=== PATIENT | female | born 1955 | race African-American/Black ===

== ENCOUNTER 2016-08-01 17:23 | Emergency (ER) | payer OTHER ==
[~2016-08-01] VITALS: Ht 165.1 cm; Wt 77.3 kg
[~2016-08-01 17:23] MED LIST: ALBUTEROL1.25 MG/3 IH; AMBIEN 10MG10 MG PO; ASPIR-LOW81 MG PO; ASPIR-LOX325 MG PO; AUGMENTIN XR 101 TER PO; CALAN SR240 MG PO; CARDI-OMEGA1000 MG PO; CEFTIN500 MG PO; CELEXA 20MG20 MG/TAB PO; CHOLESTEROL MED; CIPRO 250MG TA250 MG PO; CIPRO 500MG TA500 MG PO; COENZYME Q-1010 MG PO; FLAGYL500 MG PO; HCTZ PO; LEADER GARLIC400 MG PO; LEVAQUIN 5500 MG/TA1 PO; LIPITOR 10MG10 MG PO; LIPITOR20 MG PO; MASON NATURAL600 MG PO; MYRBETR25MG PO; NORCO 325 MG-51 TAB PO; PHENERGAN 25 TA25 MG PO; PRENATAL VITAMI1 TA5 PO; PRILOSEC 20MG20 MG PO; PRILOSEC10 MG PO; PRINIVIL10 MG PO; PROBIOTICA100 Milli1 PO; PYRIDIUM 100MG100 MG PO; ST. JOSEPH81 M2 PO; SYNTHROID0.075 MG/T PO; THYROXIN PO; TOPROL XL50 MG PO; VERAPAMIL; ZETIA10 MG PO; ZOCOR 20MG20 MG PO; ZOFRAN 4MG T4 MG/TAB PO; [UNRECOGNIZED DRUG - REMARK]
[2016-08-01 17:28] VITALS: TEMP 98.6
[2016-08-01] MEDS ORDERED: PRILOSEC 20MG20 MG PO (19:09)
[2016-08-01] MEDS ORDERED: VERELAN240 MG PO (19:09)
[2016-08-01] MEDS ORDERED: LIPITOR20 MG PO (19:09)
[2016-08-01] MEDS ORDERED: WELLBUTRIN SR100 M1 PO (19:09)
[2016-08-01] MEDS ORDERED: LINZESS145CAP PO (19:10)
[2016-08-01] MEDS ORDERED: MICROZIDE12.5 MG PO (19:10)
[2016-08-01] MEDS ORDERED: PRINIVIL10 MG PO (19:11)
[2016-08-01] MEDS ORDERED: SYNTHROID0.075 MG/T PO (19:11)
[2016-08-01 20:15] LABS: PH 5 (5-8); SQUAMOUS EPITHELIAL 0-2 /hpf; URINE APPEARANCE Clear; URINE BACTERIA None Seen /hpf; URINE BILIRUBIN Negative (NEGATIVE); URINE BLOOD Negative (NEGATIVE); URINE COLOR Yellow; URINE GLUCOSE Negative (NEGATIVE); URINE KETONE Negative (NEGATIVE); URINE RBC 0-2 /hpf; URINE UROBILINOGEN Negative (NEGATIVE)
[2016-08-01 20:24] VITALS: BP 180/101; PULSE 74
== END 2016-08-01 20:26 | disposition home or self-care (01) ==
LOC: COL.ER 17:23
PROVIDERS: Physician Assistant
DX: Z03.89 Encounter for observation for other suspected diseases and conditions ruled out (principal); R10.32 Left lower quadrant pain; R10.31 Right lower quadrant pain

== ENCOUNTER → 2016-08-23 | Outpatient (CLI) | payer SELFPAY ==
[~2016-08-23] MED LIST changes: +ASPIRIN 81M81 MG/TA2 PO; +LINZESS145CAP PO; +MACROBID 1100 MG/CAP PO; +MICROZIDE12.5 MG PO; +OMEGA-3 1000 MG1 CAP PO; +VALIUM 2MG T2 MG/TAB PO; +VERELAN240 MG PO; +WELLBUTRIN SR100 M1 PO
== END ==
LOC: COL.VAS 09:35
DX: I35.1 Nonrheumatic aortic (valve) insufficiency (principal); R94.39 Abnormal result of other cardiovascular function study; R01.1 Cardiac murmur, unspecified

== ENCOUNTER 2017-01-06 22:17 | Emergency (ER) | payer SELFPAY ==
[~2017-01-06] VITALS: Ht 165.1 cm; Wt 90.9 kg
[~2017-01-06 22:17] MED LIST changes: -ASPIRIN 81M81 MG/TA2 PO; -MACROBID 1100 MG/CAP PO; -OMEGA-3 1000 MG1 CAP PO; -VALIUM 2MG T2 MG/TAB PO
[2017-01-06 22:25] VITALS: BP 187/126; TEMP 97.9
[2017-01-06] MEDS ORDERED: OMEGA-3 1000 MG1 CAP PO (22:46)
[2017-01-06] MEDS ORDERED: ASPIRIN 81M81 MG/TA2 PO (22:46)
[2017-01-06 23:03] LABS: BASO % 0.4 % (0.0-2.0); EOS # 0.1 (0.0-0.7); EOS % 2.1 % (0-4.0); GRAN % 41.9 % (42.2-75.2); HEMOGLOBIN 12.6 g/dl (12.5-16.0); LYMPH # 2.3 (1.2-3.4); LYMPH % 48.3 % (20.0-51.0); MEAN CELL VOLUME 85 fl (80.0-100.0); MEAN CORPUSCULAR HEMOGLOBIN 28 pg (27.0-31.0); MEAN CORPUSCULAR HGB CONC 32 g/dl (33.0-37.0); MEAN PLATELET VOLUME 10.1 fl (7.4-10.4); MONO # 0.3 (0.1-0.6); MONO % 7.1 % (1.7-9.3); PLATELET COUNT 218 K/mm3 (130-400); RED BLOOD COUNT 4.58 M/mm3 (4.10-5.30); REDCELL DISTRIBUTION WIDTH-CV 14.2 % (11.5-14.5); WHITE BLOOD COUNT 4.8 K/mm3 (4.8-10.8)
[2017-01-06 23:20] LABS: ADJUSTED CALCIUM 10.4 mg/dL (8.4-10.2); ALBUMIN 4.1 gm/dL (3.5-5.0); BILIRUBIN,TOTAL 0.4 mg/dL (0.0-1.0); CALCIUM 10.5 mg/dL (8.4-10.2); CREATININE, serum 0.72 mg/dL (0.52-1.25); POTASSIUM 3.7 mmol/L (3.4-5.0); TOTAL PROTEIN 7.3 gm/dL (6.4-8.2)
[2017-01-06 23:32] LABS: PH 5 (5-8); URINE APPEARANCE Hazy; URINE BACTERIA Rare /hpf; URINE BILIRUBIN Negative (NEGATIVE); URINE BLOOD Negative (NEGATIVE); URINE COLOR Yellow; URINE GLUCOSE Negative (NEGATIVE); URINE KETONE Negative (NEGATIVE); URINE RBC 0-2 /hpf; URINE UROBILINOGEN Negative (NEGATIVE)
[2017-01-06] MEDS ORDERED: MACROBID 1100 MG/CAP PO (23:38)
[2017-01-07 00:01] VITALS: PULSE 78
== END 2017-01-07 00:03 | disposition home or self-care (01) ==
LOC: COL.ER 22:17
PROVIDERS: Emergency Medicine
DX: N30.00 Acute cystitis without hematuria (principal); I10 Essential (primary) hypertension; M19.90 Unspecified osteoarthritis, unspecified site; E03.9 Hypothyroidism, unspecified; E78.5 Hyperlipidemia, unspecified; F17.210 Nicotine dependence, cigarettes, uncomplicated; Z79.82 Long term (current) use of aspirin

== ENCOUNTER 2017-01-11 20:03 | Emergency (ER) | payer SELFPAY ==
[~2017-01-11] VITALS: Ht 165.1 cm; Wt 81.8 kg
[~2017-01-11 20:03] MED LIST changes: +ASPIRIN 81M81 MG/TA2 PO; +MACROBID 1100 MG/CAP PO; +OMEGA-3 1000 MG1 CAP PO
[2017-01-11 20:05] VITALS: TEMP 98
[2017-01-11 20:32] LABS: BASO % 0.4 % (0.0-2.0); EOS % 0.6 % (0-4.0); GRAN # 2.5 (1.4-6.5); GRAN % 49.6 % (42.2-75.2); HEMATOCRIT 40.6 % (37.0-47.0); HEMOGLOBIN 12.7 g/dl (12.5-16.0); LYMPH # 2.2 (1.2-3.4); MEAN CELL VOLUME 84 fl (80.0-100.0); MEAN CORPUSCULAR HEMOGLOBIN 26 pg (27.0-31.0); MEAN CORPUSCULAR HGB CONC 31 g/dl (33.0-37.0); MEAN PLATELET VOLUME 9.7 fl (7.4-10.4); MONO # 0.4 (0.1-0.6); MONO % 7.2 % (1.7-9.3); PLATELET COUNT 207 K/mm3 (130-400); RED BLOOD COUNT 4.81 M/mm3 (4.10-5.30); REDCELL DISTRIBUTION WIDTH-CV 14.3 % (11.5-14.5); WHITE BLOOD COUNT 5.1 K/mm3 (4.8-10.8)
[2017-01-11 20:44] LABS: ANION GAP 11 mmol/L (7-16); BLOOD UREA NITROGEN 14 mg/dL (7-17); CALCIUM 10.2 mg/dL (8.4-10.2); CARBON DIOXIDE 22 mmol/L (22-30); CHLORIDE 107 mmol/L (98-107); CREATININE, serum 0.59 mg/dL (0.52-1.25); GLUCOSE 88 mg/dL (74-106); POTASSIUM 3.5 mmol/L (3.4-5.0); SODIUM 140 mmol/L (137-145)
[2017-01-11 20:59] LABS: TROPONIN-I < 0.012 ng/mL (0.000-0.034)
[2017-01-11 21:12] VITALS: BP 175/85
[2017-01-11] MEDS ORDERED: PRILOSEC 20MG20 MG PO (21:24)
[2017-01-11] MEDS ORDERED: VALIUM 2MG T2 MG/TAB PO (21:52)
[2017-01-11 22:15] VITALS: PULSE 64
== END 2017-01-11 22:15 | disposition home or self-care (01) ==
LOC: COL.ER 20:03
PROVIDERS: Emergency Medicine
DX: R42 Dizziness and giddiness (principal); I10 Essential (primary) hypertension; R00.2 Palpitations; F17.200 Nicotine dependence, unspecified, uncomplicated
CPT/HCPCS: J7030

== ENCOUNTER → 2017-01-26 | Outpatient (CLI) | payer BC ==
[~2017-01-26] MED LIST changes: +VALIUM 2MG T2 MG/TAB PO
== END ==
LOC: COL.CARD 10:02
DX: I49.9 Cardiac arrhythmia, unspecified (principal)

== ENCOUNTER → 2017-04-23 | Outpatient (CLI) | payer BC | LOC: MC.RAD 11:36 | DX: Z12.31 Encounter for screening mammogram for malignant neoplasm of breast (principal) ==

== ENCOUNTER 2017-06-03 04:50 | Emergency (ER) | payer BC ==
[~2017-06-03] VITALS: Ht 165.1 cm; Wt 95.5 kg
[2017-06-03 04:54] VITALS: TEMP 98.1
[2017-06-03 05:29] LABS: COLLECTION METHOD CLEAN CATCH
[2017-06-03 05:36] LABS: MUCOUS Present /lpf; PH 6 (5-8); SQUAMOUS EPITHELIAL 0-2 /hpf; URINE APPEARANCE Clear; URINE BACTERIA None Seen /hpf; URINE BILIRUBIN Negative (NEGATIVE); URINE BLOOD Negative (NEGATIVE); URINE COLOR Yellow; URINE GLUCOSE 1+ (NEGATIVE); URINE KETONE Negative (NEGATIVE); URINE LEUKOCYTE ESTERASE Negative (NEGATIVE); URINE PROTEIN(semi-quant) Negative (NEGATIVE); URINE RBC None Seen /hpf; URINE UROBILINOGEN >=4.0 mg/dL (NEGATIVE)
[2017-06-03 06:14] LABS: BASO % 0.4 % (0.0-2.0); EOS # 0.1 (0.0-0.7); EOS % 1.5 % (0-4.0); GRAN # 2.6 (1.4-6.5); GRAN % 50.7 % (42.2-75.2); HEMATOCRIT 42.1 % (37.0-47.0); HEMOGLOBIN 13.3 g/dl (12.5-16.0); LYMPH % 37.9 % (20.0-51.0); MEAN CELL VOLUME 85 fl (80.0-100.0); MEAN CORPUSCULAR HEMOGLOBIN 27 pg (27.0-31.0); MEAN CORPUSCULAR HGB CONC 32 g/dl (33.0-37.0); MEAN PLATELET VOLUME 9.7 fl (7.4-10.4); MONO # 0.5 (0.1-0.6); MONO % 9.3 % (1.7-9.3); PLATELET COUNT 221 K/mm3 (130-400); RED BLOOD COUNT 4.97 M/mm3 (4.10-5.30); WHITE BLOOD COUNT 5.2 K/mm3 (4.8-10.8)
[2017-06-03 06:27] LABS: ADJUSTED CALCIUM 9.3 mg/dL (8.4-10.2); ALBUMIN 4.5 gm/dL (3.5-5.0); BILIRUBIN,TOTAL 0.7 mg/dL (0.0-1.0); C-REACTIVE PROTEIN 4.1 mg/dL (0.0-0.9); CALCIUM 9.7 mg/dL (8.4-10.2); CREATININE, serum 0.66 mg/dL (0.52-1.25); POTASSIUM 4.1 mmol/L (3.4-5.0); TOTAL PROTEIN 7.7 gm/dL (6.4-8.2)
[2017-06-03] MEDS ORDERED: NORCO 325 MG-51 TAB PO (07:31)
[2017-06-03] MEDS ORDERED: FLAGYL500 MG PO (07:31)
[2017-06-03] MEDS ORDERED: CIPRO 500MG TA500 MG PO (07:31)
[2017-06-03 08:31] VITALS: BP 162/99; PULSE 69
== END 2017-06-03 08:30 | disposition home or self-care (01) ==
LOC: COL.ER 04:50
PROVIDERS: Emergency Medicine
DX: K57.92 Diverticulitis of intestine, part unspecified, without perforation or abscess without bleeding (principal); I10 Essential (primary) hypertension; Z79.82 Long term (current) use of aspirin
CPT/HCPCS: J1170; J2405; J7030; J7050; Q9967

== ENCOUNTER → 2017-11-22 | Outpatient (CLI) | payer SELFPAY ==
[~2017-11-22] MED LIST changes: +BENTYL 20MG20 MG/TAB PO; +BLOOD PRESSURE; +CHOLESTEROL; +CONSTULOSE 20G/30ML PO
== END ==
LOC: MC.RAD 10-30 13:15
DX: N63.12 Unspecified lump in the right breast, upper inner quadrant (principal)

== ENCOUNTER → 2018-05-29 | Outpatient (CLI) | payer SELFPAY | LOC: MC.RAD 11:21 | DX: Z12.31 Encounter for screening mammogram for malignant neoplasm of breast (principal) ==

== ENCOUNTER → 2019-06-20 | Outpatient (CLI) | payer SELFPAY | LOC: MC.RAD 10:24 | DX: Z12.31 Encounter for screening mammogram for malignant neoplasm of breast (principal); Z90.13 Acquired absence of bilateral breasts and nipples ==